=== PATIENT | male | born 1985 | race Two or more races ===

== ENCOUNTER 2020-08-26 15:20 | Outpatient (REF) | payer OTHER, SELFPAY ==
--- NOTE | 2020-08-26 15:28 | XR_ITS ---
EXAMINATION: XR SHOULDER, LEFT CLINICAL INFORMATION: Pain COMPARISON: None TECHNIQUE: AP external rotation, Grashey, scapular Y, and axillary views of the left shoulder. FINDINGS: Bone alignment is normal. No fracture or dislocation is seen. The joint spaces are normal. There is a small soft tissue calcification adjacent to the greater tuberosity. IMPRESSION: No fracture or dislocation seen. Small soft tissue calcification adjacent to the greater tuberosity questionable for calcific tendinitis or bursitis.
== END 2020-08-26 15:21 | disposition home or self-care (01) ==
LOC: HO.XRAY 15:20
PROVIDERS: PCP Internal Medicine Geriatric Medicine; Visit Provider Internal Medicine Geriatric Medicine
DX: M25.512 Pain in left shoulder (principal)
CPT/HCPCS: 73030

== ENCOUNTER → 2020-08-29 12:34 | Outpatient (BNVA) | payer OTHER, SELFPAY | PROVIDERS: PCP Internal Medicine Geriatric Medicine; Referring Provider Internal Medicine Geriatric Medicine; Visit Provider Orthopaedic Surgery | DX: M75.32 Calcific tendinitis of left shoulder (principal) | CPT/HCPCS: 20610; 99212; J1100 ==

== ENCOUNTER → 2020-09-02 13:36 | Outpatient (REF) | payer OTHER, SELFPAY | LOC: HO.SL 13:36 | PROVIDERS: PCP Internal Medicine Geriatric Medicine; Visit Provider Internal Medicine Geriatric Medicine | DX: R06.83 Snoring (principal); R40.0 Somnolence; E66.01 Morbid (severe) obesity due to excess calories | CPT/HCPCS: 95806 ==

== ENCOUNTER 2023-04-28 11:00 | Outpatient (REF) | payer SELFPAY ==
--- NOTE | ~2023-04-28 | XR_ITS ---
EXAMINATION: XR LUMBOSACRAL SPINE CLINICAL INFORMATION: Pain COMPARISON: CT of the abdomen and pelvis March 2020 TECHNIQUE: Three views of the lumbosacral spine. FINDINGS: There is transitional anatomy. Levels are designated with the rudimentary disc at L5-S1 and last rib bearing vertebral body designated as T12. No fracture or dislocation. There is mild anterior subluxation of L4 with respect L5. There is a L4 pars defect. Normal disc spaces. There is lower lumbar spine facet arthritis. Small or absent right L1 transverse process. XR/XR lumbar spine 2-3V IMPRESSION: Transitional anatomy. Mild anterior subluxation of L4 with respect L5 and probable L4 pars defect. Small or absent right L1 transverse process.
--- NOTE | ~2023-04-28 | XR_ITS ---
EXAMINATION: XR KNEE, RIGHT CLINICAL INFORMATION: Tumor of right knee removed. Pain. COMPARISON: Previous x-ray and MRI of the right knee from 2019 TECHNIQUE: Four views of the right knee. FINDINGS: There is cement seen in the proximal lateral tibia unchanged from previous x-ray from 2019. Bone alignment is normal. No fracture or dislocation. Degenerative changes at the lateral femoral tibial and patellofemoral joints. No joint effusion. XR/XR knee RT 4V IMPRESSION: Stable appearance to postsurgical cement in the proximal lateral tibia. Mild degenerative changes.
== END 2023-04-28 11:01 | disposition home or self-care (01) ==
LOC: HO.HHCX 11:00
PROVIDERS: Visit Provider Internal Medicine Geriatric Medicine
DX: M54.50 Low back pain, unspecified (principal); M79.604 Pain in right leg; M25.561 Pain in right knee; M25.461 Effusion, right knee; D48.0 Neoplasm of uncertain behavior of bone and articular cartilage
CPT/HCPCS: 72100; 73564

== ENCOUNTER 2023-06-17 14:17 | Outpatient (AMB) | payer OTHER, SELFPAY ==
--- NOTE | 2023-06-17 14:28 | A.OFFVIS_ITS ---
Intake Intake Visit Reasons: New Prob- Right knee pain and swelling Intake Note: Ernesto is a 38 year old male who presnets today with new complaints of right knee pain and swelling. Patient report that in 2014 he fell on black ice. He was [place] [facility] [place] found a tumor on the tibia. He reports that he had this tumor removed in [place]. He reports that he has contined pain in the right knee, he feels this pain on the medial and lateral aspects. His pain increased pain when climbing stairs. He takes tylenol and ibuprofen for his pain, which helps mildly. 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 He has a history of cortisone injection which gave him releif for a few months. Allergies No Known Allergies Allergy (Verified 06/17/23 14:32) HPI New Prob- Right knee pain and swelling HPI Details Ernesto is a 38 year old man who presents with complaints of right knee pain. 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 He complains of pain and swelling in his knee, worse with activity. He finds climbing stairs especially difficult. He localizes his pain to the medial & lateral aspects of his knee. 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 He finds mild relief from Tylenol or celebrex, and has a hx of several months relief from steroid injections in the past [facility] Medical History (Updated 06/17/23 @ 15:01 by French Linder) Calcific tendonitis of left shoulder Surgical History (Updated 06/17/23 @ 15:01 by French Linder) H/O right knee surgery (~2014) Hx of cholecystectomy (~2014) Family History Mother No problems noted. Father No problems noted. 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 Review of Systems Const All systems reviewed & are unremarkable except as noted in HPI and below Physical Exam Const General: no acute distress, alert and awake Orientation/consciousness: patient oriented x3 HEENT Head: Yes normocephalic and Yes atraumatic Eyes EOM: EOMs intact bilaterally Resp Effort & Inspection: normal respiratory effort and able to speak in complete sentences Cardio Jugular venous distension: no JVD Skin General skin exam: turgor normal Rashes: no rashes Neuro General: patient oriented x3 Extrem Other: Right Knee: Valgus alignment with +1+ valgus laxity TTP lateral compartment Mild effusion Psych Appearance: grossly normal Affect: normal affect Attitude: cooperative Office Procedures Joint Injection/Drain Joint Injection/Drain Details: Injected 1 mL of Decadron and 3 mL 1% lidocaine and 3 mL of 0.25% Marcaine. Site was prepped using aseptic technique. Patient tolerated the procedure well. Primary Site: left knee Approach Used: anterolateral Coding 45208 - Large joint Procedure code (CPT) selection complete Results Reviewed Results Reviewed: 06/17/23 15:07 BUPivacaine MPF 0.25 % [Sensorcaine-MPF 0.25% 10 ML] 10 ml .ROUTE .STK-MED ONE Lidocaine HCl 2 % MPF [Xylocaine 2 % MPF] 5 ml .ROUTE .STK-MED ONE dexAMETHasone sod phosphate [Decadron] 4 mg .ROUTE .STK-MED ONE I personally reviewed relevant radiographs. Stable appearance to postsurgical cement in the proximal lateral tibia. Mild degenerative changes. Assessment & Plan Assessment & Plan (1) Osteoarthritis of right knee: Code(s): M17.11 - Unilateral primary osteoarthritis, right knee Plan: This is a 38 year old man with lateral compartment right knee OA, Hx of Tibial tumor removal & cementation, DOS: 2014. He complains of pain and swelling with daily activity, worse with climbing stairs. He has a hx of relief from steroid injections and mild relief from NSAIDs. I discussed his diagnosis and treatment options. I recommend NSAIDs and bracing. I injected his right knee today, which he tolerated well, and he was fitted for a lateral unloading brace to wear with daily activity. He can follow up prn. (2) H/O right knee surgery: Onset Date: ~2014 Comment: Tibial Tumor removal and Cement reconstruction of bone. Code(s): Z98.890 - Other specified postprocedural states Plan Scribed for Gomez Reed MD by French Linder medical massage therapist, on 06/17/23 at 3:10, EST. Coding Level of Care Code Est Pt Level 4 (31178) Diagnoses Osteoarthritis of right knee M17.11 H/O right knee surgery Z98.890 CPT Codes Coding - 47054 Large joint: 61340 - Large joint ([id number])
== END 2023-06-17 15:28 | disposition home or self-care (01) ==
PROVIDERS: PCP Internal Medicine Geriatric Medicine; Visit Provider Orthopaedic Surgery
DX: M17.11 Unilateral primary osteoarthritis, right knee (principal)
CPT/HCPCS: 20610; 99214

== ENCOUNTER → 2023-06-17 14:17 | Outpatient (BNVA) | payer OTHER, SELFPAY | PROVIDERS: PCP Internal Medicine Geriatric Medicine; Visit Provider Orthopaedic Surgery | DX: M17.11 Unilateral primary osteoarthritis, right knee (principal) | CPT/HCPCS: 20610; 99212; J1100 ==

== ENCOUNTER 2023-09-20 14:05 | Outpatient (AMB) | payer OTHER, SELFPAY ==
--- NOTE | 2023-09-20 14:36 | A.OFFVIS_ITS ---
Intake Intake Visit Reasons: Right Knee Injection - Last Intake Note: Ernesto is a 38 year old male who presents to for a right knee injection. The last injection done on 06/17/23 was helpful Allergies No Known Allergies Allergy (Verified 06/17/23 14:32) HPI Right Knee Injection - Last HPI Details Ernesto is a 38 year old man who returns to discuss his right knee OA. 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 He was not able to obtain a knee brace (cost prohibitive) and he continues to have pain. [facility] Medical History (Updated 06/17/23 @ 15:01 by French Linder) Calcific tendonitis of left shoulder Surgical History (Updated 06/17/23 @ 15:01 by French Linder) H/O right knee surgery (~2014) Hx of cholecystectomy (~2014) Family History Mother No problems noted. Father No problems noted. 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 Review of Systems Const All systems reviewed & are unremarkable except as noted in HPI and below Physical Exam Const General: no acute distress, alert and awake Orientation/consciousness: patient oriented x3 HEENT Head: Yes normocephalic and Yes atraumatic Eyes EOM: EOMs intact bilaterally Resp Effort & Inspection: normal respiratory effort and able to speak in complete sentences Cardio Jugular venous distension: no JVD Skin General skin exam: turgor normal Rashes: no rashes Neuro General: patient oriented x3 Extrem Other: Right Knee: Valgus alignment with 1+ valgus laxity TTP lateral compartment Mild effusion Skin C/D/I Psych Appearance: grossly normal Affect: normal affect Attitude: cooperative Office Procedures Joint Injection/Drain Joint Injection/Drain Details: Injected 1 mL of Decadron and 3 mL 1% lidocaine and 3 mL of 0.25% Marcaine. Site was prepped using aseptic technique. Patient tolerated the procedure well. Primary Site: right knee Approach Used: anterolateral Coding 43080 - Large joint Procedure code (CPT) selection complete Results Reviewed Results Reviewed: 09/20/23 14:02 BUPivacaine MPF 0.25 % [Sensorcaine-MPF 0.25% 10 ML] 10 ml .ROUTE .STK-MED ONE Lidocaine HCl 2 % MPF [Xylocaine 2 % MPF] 5 ml .ROUTE .STK-MED ONE dexAMETHasone sod phosphate [Decadron] 4 mg .ROUTE .STK-MED ONE I personally reviewed relevant radiographs. Stable appearance to postsurgical cement in the proximal lateral tibia. Mild degenerative changes. Assessment & Plan Assessment & Plan (1) Osteoarthritis of right knee: Code(s): M17.11 - Unilateral primary osteoarthritis, right knee Plan: This is a 38 year old man with lateral compartment right knee OA, Hx of Tibial tumor removal & cementation, DOS: 2014. I injected his knee again today. I showed him some unloading versus on [employer] that may be more reasonable from a cost perspective. I recommend he get those. He will see to contact me if his any questions and he can return to see me for repeat injections but try to wait as long as possible. (2) H/O right knee surgery: Onset Date: ~2014 Comment: Tibial Tumor removal and Cement reconstruction of bone. Code(s): Z98.890 - Other specified postprocedural states Coding Level of Care Code Est Pt Level 4 (85362) Diagnoses Osteoarthritis of right knee M17.11 H/O right knee surgery Z98.890 CPT Codes Coding - Large joint: 57922 - Large joint ([id number])
== END 2023-09-20 15:14 | disposition home or self-care (01) ==
PROVIDERS: PCP Internal Medicine Geriatric Medicine; Visit Provider Orthopaedic Surgery
DX: M17.11 Unilateral primary osteoarthritis, right knee (principal)
CPT/HCPCS: 20610; 99213

== ENCOUNTER → 2023-09-20 14:05 | Outpatient (BNVA) | payer OTHER, SELFPAY | PROVIDERS: PCP Internal Medicine Geriatric Medicine; Visit Provider Orthopaedic Surgery | DX: M17.11 Unilateral primary osteoarthritis, right knee (principal); Z85.830 Personal history of malignant neoplasm of bone | CPT/HCPCS: 20610; J0665; J1100 ==

== ENCOUNTER 2024-01-03 14:47 | Outpatient (AMB) | payer OTHER, SELFPAY ==
--- NOTE | 2024-01-03 14:49 | MHC.OFFVIS ---
Intake Intake Visit Reasons: OV- Right Knee Injection Intake Note: Ernesto is a 38 year old male who presents to the office today for a right knee injection. Pt states his knee is not as painful but states he still gets discomfort especially when he is bending his knee. Pt states he would like another injection. His last knee injection was 09/20/23. Allergies No Known Allergies Allergy (Verified 01/03/24 14:49) HPI OV- Right Knee Injection HPI Details Ernesto is a 38 year old man who returns to discuss his right knee OA. he was last seen, and injected, on 09/20/23, with good relief. He complains primarily of pain when bending his knee, with more discomfort with other activities. [facility] Medical History Calcific tendonitis of left shoulder Surgical History H/O right knee surgery (~2014) Hx of cholecystectomy (~2014) Family History Mother No problems noted. Father No problems noted. 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 Review of Systems Const All systems reviewed & are unremarkable except as noted in HPI and below Physical Exam Const General: no acute distress, alert and awake Orientation/consciousness: patient oriented x3 HEENT Head: Yes normocephalic and Yes atraumatic Eyes EOM: EOMs intact bilaterally Resp Effort & Inspection: normal respiratory effort and able to speak in complete sentences Cardio Jugular venous distension: no JVD Skin General skin exam: turgor normal Rashes: no rashes Neuro General: patient oriented x3 Extrem Other: mild ttp medial joint line right knee mild varus alignment with 1+ varus laxity Psych Appearance: grossly normal Affect: normal affect Attitude: cooperative Assessment & Plan Assessment & Plan (1) Osteoarthritis of right knee: Code(s): M17.11 - Unilateral primary osteoarthritis, right knee Plan: I had recommended a medial unloading right knee brace but the brace offered him was far too expensive. I showed him what braces to order on [employer] and he will see me if he has any questions. He does not need any additional treatment at this time. Plan Prepared for Gomez Reed MD by French Linder, certified medical coder, on 01/03/24 at 2:56 PM, EST. Coding Level of Care Code Est Pt Level 3 (28718) Diagnoses Osteoarthritis of right knee M17.11
== END 2024-01-03 15:15 | disposition home or self-care (01) ==
PROVIDERS: PCP Internal Medicine Geriatric Medicine; Visit Provider Orthopaedic Surgery
DX: M17.11 Unilateral primary osteoarthritis, right knee (principal)
CPT/HCPCS: 99212

== ENCOUNTER → 2024-01-03 14:47 | Outpatient (BNVA) | payer OTHER, SELFPAY | PROVIDERS: PCP Internal Medicine Geriatric Medicine; Visit Provider Orthopaedic Surgery | DX: M17.11 Unilateral primary osteoarthritis, right knee (principal) | CPT/HCPCS: J0665; J1100 ==

== ENCOUNTER 2024-03-15 10:14 | Outpatient (REF) | payer OTHER, SELFPAY ==
[2024-03-15 11:32] LABS: MANUAL DIFF FLAG NO
[2024-03-15 11:37] LABS: Basophils Absolute Auto 0.1 X10*3/uL (0.0-0.2); Basophils Percent Auto 0.7 % (0-2); Eosinophils Absolute Auto 0.1 X10*3/uL (0.0-0.4); Eosinophils Percent Auto 1.6 % (0-4); Hematocrit 44.7 % (42.0-52.0); Hemoglobin 13.8 g/dl (14.0-18.0); Imm Gran Abs Auto 0.08 X10*3/uL (0.00-0.03); Imm Gran Pct Auto 1.2 % (0.0-0.4); Lymphocytes Absolute Auto 1.8 X10*3/uL (1.2-4.9); Lymphocytes Percent Auto 27.3 % (20-40); Mean Corpuscular HGB Conc 30.9 g/dl (31.0-36.0); Mean Corpuscular Hemoglobin 29.5 pg (27.0-33.0); Mean Corpuscular Volume 95.5 fL (80.0-98.0); Mean Platelet Volume 11.9 fL (9.4-12.4); Monocytes Absolute Auto 0.6 X10*3/uL (0.1-1.2); Monocytes Percent Auto 9.4 % (2-11); Neutrophils Percent Auto 59.8 % (45-73); Platelet Count 263 X10*3/uL (160-400); Red Blood Count 4.68 X10*6/uL (4.60-5.80); White Blood Count 6.7 X10*3/uL (4.8-10.8)
[2024-03-15 12:05] LABS: Anion Gap 13 (12-20); Blood Urea Nitrogen 19 mg/dL (9-16); Carbon Dioxide 26 mmol/L (22-29); Chloride 107 mmol/L (96-108); Estimated Glomerular Filt Rate > 60; Glucose Random 99 mg/dL (60-115); Potassium 4.3 mmol/L (3.3-5.1); Sodium 142 mmol/L (135-145)
== END 2024-03-15 10:15 | disposition home or self-care (01) ==
LOC: HO.HHCL 10:14
PROVIDERS: Visit Provider Internal Medicine Geriatric Medicine
DX: M25.561 Pain in right knee (principal); G89.29 Other chronic pain
CPT/HCPCS: 36415; 80048; 85025

== ENCOUNTER 2024-04-10 14:50 | Outpatient (AMB) | payer OTHER, SELFPAY ==
--- NOTE | 2024-04-10 14:58 | A.OFFVIS_ITS ---
Intake Visit Reasons: OV- Right Knee-follow up Intake Note: Ernesto is a 38 year old male who presents today for a follow up of his right knee OA. It was recommended that he obtain a Medial unloading brace but the custom one from [employer] was too expensive. He was instructed to try an obtain one from [employer] that was more affordable. Allergies No Known Allergies Allergy (Verified 01/26/24 13:06) HPI HPI OV- Right Knee-follow up: Details: Ernesto is a 38 year old male who presents today for a follow up of his right knee OA. It was recommended that he obtain a Medial unloading brace but the custom one from [employer] was too expensive. He was instructed to try an obtain one from [employer] that was more affordable. [facility] Medical History Calcific tendonitis of left shoulder Surgical History H/O right knee surgery (~2014) Hx of cholecystectomy (~2014) Family History Mother No problems noted. Father No problems noted. 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 I recommend 2-4 hours a day. F/u 4 weeks Coding Level of Care Code Est Pt Level 3 (64051) Diagnoses Osteoarthritis of right knee M17.11
== END 2024-04-10 16:03 | disposition home or self-care (01) ==
PROVIDERS: PCP Internal Medicine Geriatric Medicine; Visit Provider Orthopaedic Surgery
DX: M17.11 Unilateral primary osteoarthritis, right knee (principal)
CPT/HCPCS: 99213

== ENCOUNTER → 2024-04-10 14:50 | Outpatient (BNVA) | payer OTHER, SELFPAY | PROVIDERS: PCP Internal Medicine Geriatric Medicine; Visit Provider Orthopaedic Surgery ==

== ENCOUNTER 2024-05-15 14:54 | Outpatient (AMB) | payer OTHER, SELFPAY ==
--- NOTE | 2024-05-15 15:02 | MHC.OFFVIS ---
Intake Visit Reasons: OV- Right Knee-follow up Intake Note: Ernesto is a 39 year old male who presents today for a follow up of his right knee pain. He ordered a Medial unloading brace from [employer] which he has been wearing since his last visit Allergies No Known Allergies Allergy (Verified 01/26/24 13:06) HPI HPI OV- Right Knee-follow up: Details: Ernesto is a 39 year old male who presents today for a follow up of his right knee pain. He ordered a Medial unloading brace from [employer] which he has been wearing since his last visit. He states he feels more stable and is going to start trying to exercise. [facility] Medical History Calcific tendonitis of left shoulder Surgical History H/O right knee surgery (~2014) Hx of cholecystectomy (~2014) Family History Mother No problems noted. Father No problems noted. 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 COntinue to use unloading brace as tolerated. May follow up as needed. Coding Level of Care Code Est Pt Level 3 (23938) Diagnoses Osteoarthritis of right knee M17.11
== END 2024-05-15 15:07 | disposition home or self-care (01) ==
PROVIDERS: PCP Internal Medicine Geriatric Medicine; Visit Provider Orthopaedic Surgery
DX: M17.11 Unilateral primary osteoarthritis, right knee (principal)
CPT/HCPCS: 99212

== ENCOUNTER → 2024-05-15 14:54 | Outpatient (BNVA) | payer OTHER, SELFPAY | PROVIDERS: PCP Internal Medicine Geriatric Medicine; Visit Provider Orthopaedic Surgery ==

== ENCOUNTER 2025-05-02 16:12 | Outpatient (REF) | payer OTHER, SELFPAY ==
--- OUTSIDE RECORDS SUMMARY | 2025-05-02 18:44 | XMS_ITS | Encounter Summary ---
Author Organization [employer] Address [address] [place] [address] Care Team Providers Care Metal Stud Framer Name Role Phone Name, Jermain GALINDO Primary Care Provider [phone] Encounter Details Date Type Department Care Team (Latest Contact Info) Description 05/02/2025 Travel Social History Tobacco Use Types Packs/Day Years Used Date Smoking Tobacco: Former Cigarettes Q uit: 1997 Smokeless Tobacco: Never Alcohol Use Standard Drinks/Week Comments Not Currently 0 (1 standard drink = 0.6 oz pur e alcohol) Depression Answer Date Recorded Patient Health Questionnaire-9 Score 4 08/22/2024 Patient Health Questionnaire-9 Score 4 08/22/2024 Last PHQ-9: Questionnaire Data Not on file 1 Housing Stability Answer Date Recorded What is your housing situation today? I have cory chavez 05/02/[address] you li ve. Do you have problems with any of the following? None of the above 05/02/2025 Food Insecurity Answer Date Recorded Within the past 12 months, y ou worried that your food would run out before you got money to buy more: Sometimes True 2024 Within the past 12 months,th e food you bought just didn't last and you didn't have enough money to get more: Never True 05/02/2025 Transportation Answer Date Recorded In the past 12 months, has l ack of transportation kept you from medical appts, meetings, work or from getting things needed for daily living? No 05/02/2025 Utilities Answer Date Recorded In the past 12 months, has t he electric, gas, oil or water company threatened to shut off services in your home? No 05/02/2025 Depression Answer Date Recorded Patient Health Questionnaire-2 Score 1 08/22/2024 Internet Access Answer Date Recorded Internet Access Q1 Yes 05/02/2025 Internet Access Q2 Not on file 05/02/2025 Sex and Gender Information Value Date Recorded Sex Assigned at Male 09/07/2022 10:35 AM EDT Legal Sex Male 10:35 AM EDT Gender Identity Male 09/07/2022 10:35 AM EDT Sexual Orientation Straight 09/07/2022 10 :35 AM EDT documented as of this encounter Plan of Treatment Not on file documented as of this encounter Visit Diagnoses Not on filedocumented in this encounter Additional Health Concerns Assessment Noted Time PHQ-9 Depression Total Score: 4 08/22/20 24 9:12 AM EDT documented as of this encounter Care Teams Metal Stud Framer Relationship Specialty Start Date End Date Name, MD Jermain [address] [place] [address] PCP - General Family Medicine 12/08/18 documented as of this encounter
== END 2025-05-02 16:13 | disposition home or self-care (01) ==
LOC: HO.HHCL 16:12
PROVIDERS: PCP Internal Medicine Geriatric Medicine; Visit Provider Internal Medicine Geriatric Medicine
DX: Z13.89 Encounter for screening for other disorder (principal)

== ENCOUNTER 2025-05-03 12:24 | Outpatient (REF) | payer OTHER, SELFPAY ==
--- NOTE | ~2025-05-03 | XR_ITS ---
CLINICAL HISTORY: Chronic biltaral knee pain, history of tumor right knee s p surgery 2014 AP standing view of the bilateral knees Lateral view left knee Lateral view right knee Comparison: None provided Findings: Chronic deformity of the right lateral tibial plateau. Cement has been placed in the region of deformity. 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 There is no acute displaced fracture. There is a mild leg length discrepancy. The left medial tibial plateau is 1.3 cm superior to the right. There is mild narrowing of the right medial knee compartment. No significant narrowing of the left medial or bilateral lateral knee compartments. No joint effusion. No radiopaque foreign body. IMPRESSION: 1. Surgical cement within the right lateral tibial plateau. Chronic deformity of the right lateral tibial plateau. 2. There is a mild leg length discrepancy. 3. There is mild cartilage loss within the right medial knee compartment. This document has been electronically signed by: Stephania Morgan MD on 05/04/2025 16:15:09
--- NOTE | ~2025-05-03 | XR_ITS ---
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 No acute fractures or dislocation. No significant degenerative change. IMPRESSION: No acute findings. This document has been electronically signed by: Eleazar Alcala MD on 05/03/2025 22:59:47
--- NOTE | ~2025-05-03 | XR_ITS ---
CLINICAL HISTORY: Pain and decreased ROM for the past month after heavy lifing 4 view left shoulder Comparison: None provided Findings: Bones intact. No dislocations. 1.4 cm calcification superior to the head of the humerus. No significant loss of joint space or osteophytes. No erosions. No radiopaque foreign body. IMPRESSION: Calcific tendinitis of the rotator cuff. This document has been electronically signed by: Stephania Morgan MD on 05/04/2025 16:12:22
[2025-05-03 13:19] LABS: MANUAL DIFF FLAG NO
[2025-05-03 14:23] LABS: Basophils Percent Auto 0.6 % (0-2); Eosinophils Absolute Auto 0.1 X10*3/uL (0.0-0.4); Eosinophils Percent Auto 1.8 % (0-4); Hematocrit 41.3 % (42.0-52.0); Hemoglobin 12.9 g/dl (14.0-18.0); Imm Gran Abs Auto 0.03 X10*3/uL (0.00-0.03); Imm Gran Pct Auto 0.4 % (0.0-0.4); Lymphocytes Absolute Auto 1.8 X10*3/uL (1.2-4.9); Lymphocytes Percent Auto 27.5 % (20-40); Mean Corpuscular HGB Conc 31.2 g/dl (31.0-36.0); Mean Corpuscular Hemoglobin 28.9 pg (27.0-33.0); Mean Corpuscular Volume 92.6 fL (80.0-98.0); Mean Platelet Volume 11.4 fL (9.4-12.4); Monocytes Absolute Auto 0.6 X10*3/uL (0.1-1.2); Monocytes Percent Auto 9.6 % (2-11); Neutrophils Percent Auto 60.1 % (45-73); Platelet Count 279 X10*3/uL (160-400); Red Blood Count 4.46 X10*6/uL (4.60-5.80); Red Cell Distribution Width 11.9 % (11.0-16.0); White Blood Count 6.7 X10*3/uL (4.8-10.8)
[2025-05-03 14:32] LABS: Estimated Average Glucose 94 mg/dL; Hemoglobin A1C 103.3312 umol/L; Hemoglobin A1c % 4.9 % (<6.0)
--- OUTSIDE RECORDS SUMMARY | 2025-05-03 14:44 | XMS_ITS | Encounter Summary ---
Author Organization [employer] Address [address] [place] [address] Care Team Providers Care Balloon Pilot Name Role Phone Name, Jermain GALINDO Primary Care Provider [phone] Encounter Details Date Type Department Care Team [...] documented as of this encounter Care Teams Balloon Pilot Relationship Specialty Start Date End Date Name, MD [address]erm[address] [place] [address] PCP - General Family Medicine 12/08/18 documented as of this encounter
[2025-05-03 14:53] LABS: Alanine Aminotransferase 25 U/L (0-40); Albumin Level 4.7 g/dL (3.5-5.0); Alkaline Phosphatase 70 U/L (39-117); Anion Gap 10 (12-20); Aspartate Amino Transferase 19 U/L (5-37); Bilirubin Total 0.4 mg/dL (0.0-1.0); Blood Urea Nitrogen 17 mg/dL (9-16); Calcium 9.3 mg/dL (8.4-10.2); Carbon Dioxide 27 mmol/L (22-29); Chloride 110 mmol/L (96-108); Estimated Glomerular Filt Rate > 60; Glucose Random 79 mg/dL (60-115); Potassium 4.1 mmol/L (3.3-5.1); Sodium 143 mmol/L (135-145); Total Protein 7.3 g/dL (6.5-8.0)
== END 2025-05-03 12:25 | disposition home or self-care (01) ==
LOC: HO.XRAY 12:24
PROVIDERS: PCP Internal Medicine Geriatric Medicine; Visit Provider Internal Medicine Geriatric Medicine
DX: M25.512 Pain in left shoulder (principal); M25.561 Pain in right knee; M25.562 Pain in left knee; G89.29 Other chronic pain; M54.50 Low back pain, unspecified; E66.01 Morbid (severe) obesity due to excess calories; Z51.81 Encounter for therapeutic drug level monitoring; Z79.1 Long term (current) use of non-steroidal anti-inflammatories (NSAID); Z13.1 Encounter for screening for diabetes mellitus
CPT/HCPCS: 36415; 72100; 73030; 73560; 80053; 83036; 85025

== ENCOUNTER → 2025-05-03 12:29 | Outpatient (BNV) | payer OTHER, SELFPAY | PROVIDERS: PCP Internal Medicine Geriatric Medicine; Visit Provider Specialist | DX: M54.50 Low back pain, unspecified (principal); M75.32 Calcific tendinitis of left shoulder; M21.861 Other specified acquired deformities of right lower leg | CPT/HCPCS: 72100; 73030; 73560 ==

== ENCOUNTER 2025-07-11 12:42 | Outpatient (AMB) | payer OTHER, SELFPAY ==
--- NOTE | 2025-07-11 12:46 | A.OFFVIS_ITS ---
Intake Visit Reasons: vasectomy consult Intake Note: New Patient is present for Vasectomy consult Urology Rx:none Blood Thinners:none Property Officer Required: No Accompanied by: Self / Same As Patient Allergies No Known Allergies Allergy (Verified 07/11/25 12:47) HPI Comments Details: Ernesto is a very pleasant male. He is a patient of Dr Nair. He is seen for the following urologic condition - anxiety about health - Vasectomy evaluation Georgian translation provided in office by qualified medical genetics director Vasectomy evaluation The patient presents for vasectomy consultation. He is currently He has fathered - 3 child, with a single partner. The youngest child is - in uretero. His partner is aware and permissive for a vasectomy Current form of control is -. 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 Patient education has been provided via [employer] video, via printed information, risks of failure, recovery time, bruising and potential pain syndrome have been stressed Discussion today focused on the presence of vasectomy and the risks, benefits and alternatives that are available. Vasectomy as intended as a permanent form of control. Printed information and literature was provided to the patient. Overall there is a one in 2500 failure rate. This can occur at any time after vasectomy. Risks were discussed highlighting hematoma, spermatocele, epididymal congestion, development of sperm antibodies, and development of chronic pain estimated between 1-5%. The procedure was reviewed in detail. Anatomical diagrams of the male genitalia were used to explain the location of the vas deferens. The vas deferens will be transected, the proximal end will be cauterized, a metal clip would be applied to separate the 2 vas deferens ends. It was explained the procedure will be done in the office and takes approximately 10-15 minutes. Less common problems that arise with vasectomy include hematoma, bleeding, allergic reaction to anesthetic, epididymal infection, epididymal congestion, scrotal discomfort, spermatic leak, spermatic granuloma and the possibility of antisperm antibodies. He understands these risks and wishes to proceed. Consent was signed at the office today. He also understands that it takes 12 weeks for sperm to fully clear the system. He will need to provide a semen sample at 12 weeks and if this is not clear a 2nd sample at 16 weeks. Medical clearance to stop using protection will only be provided if he satisfies published criteria for sperm clearance. Given is currently recommend vasectomy in November [facility] Medical History Calcific tendonitis of left shoulder Surgical History H/O right knee surgery (~2014) Hx of cholecystectomy (~2014) Family History Mother No problems noted. Father No problems noted. 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 Review of Systems Const Denies chills and Denies fever(s) Card Reports no additional complaints and Denies syncope Resp Denies cough GI Denies abdominal pain and Denies heartburn Reports as per HPI and Denies change in libido Neuro Denies syncope Psych Denies change in libido Endo Denies change in libido Physical Exam Const General: cooperative, healthy appearing, comfortable and no acute distress Orientation/consciousness: patient oriented x3 HEENT Face and sinus: Yes normal facial exam Mouth: moist mucous membranes Neck Neck: Yes normal visual inspection, Yes full ROM and Yes trachea midline Chest Chest palpation & inspection: normal inspection of the chest Resp Effort & Inspection: normal respiratory effort, able to speak in complete sentences and no respiratory distress GI Inspection: Yes normal to inspection Back/Spine/Pelvis Cervical Spine: normal cervical lordosis Thoracic/Lumbar Spine: thoracic and lumbar spine normal to inspection Skin General skin exam: no rashes or lesions noted Neuro General: patient oriented x3, gait normal, tone normal and moves all extremities Extrem General: Yes normal to inspection and Yes capillary refill normal Assessment & Plan Assessment & Plan (1) Anxiety about health: Code(s): R45.89 - Other symptoms and signs involving emotional state Category: Medical Plan Plan vasectomy Medications: New diazepam Take medication after arrival at office 2 mg PO BID PRN 2 tabs 0RF anxiety 1 day R45.89 - Other symptoms and signs involving emotional state tramadol 50 mg PO Q8H PRN 7 tabs 0RF pain N43.3 - Hydrocele, unspecified, R45.89 - Other symptoms and signs involving emotional state Patient Instructions: This note is constructed using voice recognition software. While every effort has been made to ensure accuracy senior trial attorney errors may have been included. Imaging studies, laboratory and physical exam results were discussed and reviewed in detail. No major barriers to patient understanding were identified. An opportunity to ask questions regarding the treatment plan was provided. All questions were answered. The patient expressed understanding and agreement with the above treatment plan. The patient is aware they should contact our office by phone for worsening of their current condition or the appearance of new urologic symptoms. Compliance is encouraged with any medications and followup testing that is ordered. It is a privilege to participate in the urologic care of your patient. If you have any questions or concerns regarding treatment for the above conditions, or other urologic issues, please do not hesitate to contact me. The office telephone contact is [phone]. Sincerely, Dr Ja Hope MD, [facility] - Urology Compassionate Specialist Care for the Genitourinary System Coding Level of Care Code New Pt Level 4 (12362) Diagnoses Anxiety about health R45.89
--- OUTSIDE RECORDS SUMMARY | 2025-07-11 15:05 | XMS_ITS | Clinical Summary ---
Author Organization [employer] Address [address] [place] [address] Care Team Providers Care Bore Miner Operator Name Role Phone Name, Jermain GALINDO Primary Care Provider [phone] Allergies No known active allergies Medications acetaminophen (Tylenol) 500 MG tablet Take 2 tablets (1,000 mg) by mouth every 6 (six) hours if needed for moderate pain or fever for up to 25 doses. 50 tablet 11/09/19 24 Active Additional Information Patient not taking.Reported on 05/30/2024 ipratropium (Atrovent) 0.06 % nasal spray USE 2 SPRAYS IN EACH NOSTRIL FOUR TIMES DAILY 15 mL 1 06/28/20 24 Active celecoxib (CeleBREX) 200 MG capsuleIndicat ions:Bilateral chronic knee pain Take 1 capsule (200 mg) by mouth 2 times daily. 180 capsule 2 05/02/20 25 Active Diclofenac Sodium 1 % gelIndications :Bilateral chronic knee pain APPLY 2 GRAMS TO affected HAND ONCE DAILY 100 g 3 05/02/20 25 Active omeprazole OTC (PriLOSEC OTC) 20 MG EC tabletIndicati ons:Bilateral chronic knee pain Take 1 tablet (20 mg) by mouth before breakfast. Do not crush, chew, or split. 90 tablet 3 05/02/20 25 026 Active Tirzepatide-We ight Management (Zepbound) 2.5 MG/0.5ML solution auto-injector Inject 0.5 mL (2.5 mg) under the skin 1 (one) time per week. 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 He was then referred to orthopedic oncologist that removed the tumor that was consistent with giant cell tumor Resolved Problems Problem Noted Date Diagnosed Date Resolved Date Influenza-like symptoms 04/19/202304/08 Ankle swelling 12/24/2015 01/25/2024 Bone pain 12/24/2015 01/25/2024 Disorder of lower leg 12/24/20152022 Overview (04/19/2023): RIGHT; Routine general medical exam ination at a health care facility 12/24/2015 04/19/2023 Encounters Date Type Department Care Team Description 06/22/2025 Telephone [facility] [address] [place] [phone] Name, MD Jermain Referral 06/19/2025 Telephone [facility] [address] [place] [address] NameJermain MD Prior Authorization 06/19/[address] [address] NameJermain MD Results 05/02/2025 3:45 PM EDT Office Visit [facility] [address] [place] [address] Name, MD Jermain Morbid obesity (CMS/HCC) (Primary Dx); Obstructive sleep apnea syndrome; Acute bilateral low back pain without sciatica; Bilateral chronic knee pain; Giant cell tumor of bone; Acute pain of left shoulder; Encounter for monitoring chronic NSAID therapy; Family planning 05/02/2025 Travel 05/01/2025 Telephone [facility] [address] [place] [address] Annalisa Manriquez [place] CHARTPREP from Last 3 Months Immunizations Immunization Administration Dates Next Due Influenza injectable quadriv alent preservative free 09/22/2023,11/11/2021,07/31/2019,2018,12/21/2016 Influenza, seasonal, injecta ble, preservative free 08/22/2024 Tdap 12/08/2018,12/21/2016 Social History Tobacco Use Types Packs/Day Years Used Date Smoking Tobacco: Former Cigarettes Q uit: 1997 Smokeless Tobacco: Never Tobacco Cessation:Counseling Given: Not Answered Alcohol Use Standard Drinks/Week Comments Not Currently 0 (1 standard drink = 0.6 oz pur e alcohol) Depression Answer Date Recorded Patient Health Questionnaire-9 Score 4 08/22/2024 Patient Health Questionnaire-9 Score 4 08/22/2024 Last PHQ-9: Questionnaire Data Not on file 1 Housing Stability Answer Date Recorded What is your housing situation today? I have coryerick chavez 05/02/[address] you [...] the past 12 months, has t he [employer], oil or water company threatened to shut [...] Orientation Straight 09/07/2022 10 :35 AM EDT Last Filed Vital Signs Vital Sign Reading Time Taken Comments Blood Pressure 120/72 05/02/2025 3:37 PM EDT Pulse 93 05/02/2025 3:37 PM EDT Temperature 36.5 C (97.7 F) 05/02/2025 3:37 PM EDT Respiratory Rate 18 05/02/2025 3:37 PM EDT Oxygen Saturation 96% 05/02/2025 3:37 PM EDT Inhaled Oxygen Concentration - - Weight 146 kg (321 lb 3.2 oz) 05/02/2025 3:37 PM EDT Height 180.3 cm (5' 11 ) 05/02/2025 3:37 PM EDT Body Mass Index 44.8 05/02/2025 3:37 PM EDT Plan of Treatment Upcoming Encounters Date Type Department Care Team (Late st Contact Info) Description 07/23/2025 9:00 AM EDT Nutrition [facility] DIABETES/NUTRITION [address] [place] [address] [place] [address] 08/02/2025 9:45 AM EDT Procedure Visit [facility] CHC MED & PEDS [address] [place] [address] Keara Zhang MD [address] [place] [address] 08/27/2025 3:30 PM EDT Office Visit [facility] [address] [place] [address] Name, MD Jermain [address] [place] [address] Health Maintenance Due Date Last Done Comments Family Planning (PISQ) 1999 HPV Vaccines (1 - Male 3-dose series) 1999 Hepatitis B Vaccines (1 of 3 - 19+ 3-dose series) 2003 COVID-19 Vaccine (1 - 2023- season) 2025 Influenza Vaccine (#1) 2025 , 09/22/2023, 11/11/2021, Additional history exists Alcohol/Substance Use Screening 08/22/2025 08/22/2024 Depression Screening 08/22/2025 08/22/2024, 08/22/20 24 Disability Screening 05/02/2026 05/02/2025 SDOH Screening 05/02/2026 05/02/2025 Tobacco Screening 05/02/2026 05/02/2025 Lipid Panel 04/28/2028 04/28/2023, 11/10, 08/15/2020 DTaP/Tdap/Td Vaccines (3 - Td or Tdap) 12/08/2028 12/08/2018, 12/21/2016 Zoster Vaccines (1 of 2) 2034 RSV Patients and Patients Aged 60 years or older (1 - 1-dose 75+ series) 2059 HIV Screening Completed 12/08/2021 Hepatitis C Screening Completed 12/08/2021 HIB Vaccines Aged Out No longer eligi ble based on patient's age to complete this topic Hepatitis A Vaccines Aged Out No long er eligible based on patient's age to complete this topic IPV Vaccines Aged Out No longer eligi ble based on patient's age to complete this topic Meningococcal B Vaccine Aged Out No l onger eligible based on patient's age to complete this topic Meningococcal Vaccine Aged Out No evon lakhwinder eligible based on patient's age to complete this topic Pneumococcal Vaccine: Pediatrics (0 to 5 Years) and At-Risk Patients (6 to 49) Years Aged Out No longer eligible based on patient's age to complete this topic RSV under 20 months Aged Out No longe r eligible based on patient's age to complete this topic Rotavirus Vaccines Aged Out No longer eligible based on patient's age to complete this topic Procedures Procedure Name Priority Date/Time Associated Diagnosis Comments XR KNEE 1-2 VIEWS BILATERAL Routine 05/04/2025 4:15 PM EDT Bilateral chronic knee pain XR SHOULDER 2+ VIEWS LEFT Routine 05/04/2025 4:12 PM EDT Acute pain of left shoulder XR LUMBAR SPINE 2-3 VIEWS Routine 05/03/2025 10:59 PM EDT Acute bilateral low back pain without sciatica HEMOGLOBIN A1C Routine 05/03/2025 1:14 PM EDT Morbid obesity (CMS/HCC) COMPREHENSIVE METABOLIC PANEL Routine 05/03/2025 1:14 PM EDT Morbid obesity (CMS/HCC) Encounter for monitoring chronic NSAID therapy CBC WITH AUTO DIFFERENTIAL Routine 05/03/2025 1:14 PM EDT Morbid obesity (CMS/HCC) Encounter for monitoring chronic NSAID therapy LIPID PANEL, STANDARD Routine 04/28/2023 10:00 AM EDT Screening for cholesterol level ZZZ HISTORICAL HEPATITIS C AB W/REFL TO HCV RNA, QN, PCR Routine 12/08/2021 11:25 AM EST HIV 1/2 ANTIGEN/ANTIBODY, FOURTH GENERATION W/RFL Routine 12/08/2021 11:25 AM EST from Last 3 Months or Most Recently Relevant to Health Maintenance Results * XR Knee 1-2 Views Bilateral (05/04/2025 4:15 PM EDT) Anatomical Region Laterality Modality Lower Extremities, Knee Bilateral Radiogra [facility] 05/04/2025 4:15 PM EDT Narrative 05/04/2025 4:16 PM EDT [address] [address] XRay Report Signed Patient: Ernesto Pop MR#: [id number] : 1985 Acct:[id number] Age/Sex: 39 / M ADM Date: 05/03/25 Loc: HOMAXIM Attending Dr: Jermain Nair MD Ordering Physician: NameJermain MD Date of Service: 05/03/25 Procedure(s): XR Knee Osmany 1or 2V Accession Number(s): [id number] cc: Name,Jermain GALINDO CLINICAL HISTORY: Chronic biltaral knee pain, history of tumor right knee s p surgery 2014 AP standing view of the bilateral knees Lateral view left knee Lateral view right knee Comparison: None provided Findings: Chronic deformity of the right lateral tibial plateau. Cement has been placed in the region of deformity. 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 There is no acute displaced fracture. There is a mild leg length discrepancy. The left medial tibial plateau is 1.3 cm superior to the right. There is mild narrowing of the right medial knee compartment. No significant narrowing of the left medial or bilateral lateral knee compartments. No joint effusion. No radiopaque foreign body. IMPRESSION: 1. Surgical cement within the right lateral tibial plateau. Chronic deformity of the right lateral tibial plateau. 2. There is a mild leg length discrepancy. 3. There is mild cartilage loss within the right medial knee compartment. This document has been electronically signed by: Stephania Morgan MD on 05/04/2025 16:15:09 Dictated By: Stephania Morgan MD Signed By: <Electronically signed by Stephania Morgan MD in OV> 05/04/25 1616 DD/ 1615 TD/TT: 05/04/25 1615 Fast Brim Pouncer: Procedure Note Donotuseinterpreter, Image - 05/04/[address] [address] XRay Report Signed Patient: Edgar Pop#: [id number] : 1985Acct:[id number] Age/Sex: 39 / MADM Date: 05/03/25 Loc: HOMAXIM Attending Dr: Jermain Nair MD Ordering Physician: Jermain Nair MD Date of Service: 05/03/25 Procedure(s): XR Knee Osmnay 1or 2V Accession Number(s): [id number] cc: Jermain Nair MD CLINICAL HISTORY: Chronic biltaral knee pain, history of tumor right knees p surgery 2014 AP standing view of the bilateral knees Lateral view left knee Lateral view right knee Comparison: None provided Findings: Chronic deformity of the right lateral tibial plateau. Cement has been placed in the region of deformity. 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 There is no acute displaced fracture. There is a mild leg length discrepancy. The left medial tibial plateau is 1.3 cm superior to the right. There is mild narrowing of the right medial knee compartment. No significant narrowing of the left medial or bilateral lateral knee compartments. No joint effusion. No radiopaque foreign body. IMPRESSION: 1. Surgical cement within the right lateral tibial plateau. Chronic deformity of the right lateral tibial plateau. 2. There is a mild leg length discrepancy. 3. There is mild cartilage loss within the right medial knee compartment. This document has been electronically signed by: Stephania Morgan MD on 05/04/2025 16:15:09 Dictated By: Stephania Morgan MD Signed By: <Electronically signed by Stephania Morgan MD in OV> 05/04/25 1616 DD/ 1615 TD/TT: 05/04/25 1615 Fast Brim Pouncer: Jermain Nair MD IMG XR PROCEDURES Final Result * XR Shoulder 2+ Views Left (05/04/2025 4:12 PM EDT) Anatomical Region Laterality Modality Upper Extremities, Shoulder Left Radi ographic Imaging 05/04/2025 4:12 PM EDT Narrative 05/04/2025 4:13 PM EDT [address] [address] XRay Report Signed Patient: Ernesto Pop MR#: [id number] : 1985 Acct:[id number] Age/Sex: 39 / M ADM Date: 05/03/25 Loc: HO.XRAY Attending Dr: Jermain Nair MD Ordering Physician: Jermain Nair MD Date of Service: 05/03/25 Procedure(s): XR shoulder LT min 2V Accession Number(s): [id number] cc: Jermain Nair MD CLINICAL HISTORY: Pain and decreased ROM for the past month after heavy lifing 4 view left shoulder Comparison: None provided Findings: Bones intact. No dislocations. 1.4 cm calcification superior to the head of the humerus. No significant loss of joint space or osteophytes. No erosions. No radiopaque foreign body. IMPRESSION: Calcific tendinitis of the rotator cuff. This document has been electronically signed by: Stephania Morgan MD on 05/04/2025 16:12:22 Dictated By: Stephania Morgan MD Signed By: <Electronically signed by Stephania Morgan MD in OV> 05/04/251611 DD/ 11 TD/TT: 05/04/251611 Fast Brim Pouncer: Procedure Note Donotuseinterpreter, Image - 05/04/2025 [place] [address] XRay Report Signed Patient: Edgar Pop#: [id number] : 1985Acct:[id number] Age/Sex: 39 / MADM Date: 05/03/25 Loc: HO.XRAY Attending Dr: Jermain Nair MD Ordering Physician: Jermain Nair MD Date of Service: 05/03/25 Procedure(s): XR shoulder LT min 2V Accession Number(s): [id number] cc: Jermain Nair MD CLINICAL HISTORY: Pain and decreased ROM for the past month after heavylifing 4 view left shoulder Comparison: None provided Findings: Bones intact. No dislocations. 1.4 cm calcification superior to the head of the humerus. No significant loss of joint space or osteophytes. No erosions. No radiopaque foreign body. IMPRESSION: Calcific tendinitis of the rotator cuff. This document has been electronically signed by: Stephania Morgan MD on 05/04/2025 16:12:22 Dictated By: Stephania Morgan MD Signed By: <Electronically signed by Stephania Morgan MD in OV> 05/04/251611 DD/ 11 TD/TT: 05/04/251611 Fast Brim Pouncer: Jermain Nair MD IMG XR PROCEDURES Final Result * XR Lumbar Spine 2-3 Views (05/03/2025 10:59 PM EDT) Anatomical Region Laterality Modality Spine, L-spine Radiographic Sharmin ging 05/03/2025 10:5 9 PM EDT Narrative 05/03/2025 11:01 PM EDT [address] [address] XRay Report Signed Patient: Ernesto Pop MR#: [id number] : 1985 Acct:[id number] Age/Sex: 39 / M ADM Date: 05/03/25 Loc: JULIANA Attending Dr: Jermain Nair MD Ordering Physician: Jermain Nair MD Date of Service: 05/03/25 Procedure(s): XR lumbar spine 2-3V Accession Number(s): [id number] cc: Jermain Nair MD 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 No acute fractures or dislocation. No significant degenerative change. IMPRESSION: No acute findings. This document has been electronically signed by: Eleazar Alcala MD on 05/03/2025 22:59:47 Dictated By: Eleazar Alcala MD Signed By: <Electronically signed by Eleazar Alcala MD in OV> 05/03/251 DD/ 58 TD/TT: 05/03/252258 Fast Brim Pouncer: Procedure Note Donotuseinterpreter, Image - 05/03/[address] [address] XRay Report Signed Patient: Lemuel PopR#: [id number] : 1985Acct:[id number] Age/Sex: 39 / MADM Date: 05/03/25 Loc: JULIANA Attending Dr: Jermain Nair MD Ordering Physician: Jermain Nair MD Date of Service: 05/03/25 Procedure(s): XR lumbar spine 2-3V Accession Number(s): [id number] cc: Name,Jermain GALINDO 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 No acute fractures or dislocation. No significant degenerative change. IMPRESSION: No acute findings. This document has been electronically signed by: Eleazar Alcala MD on 05/03/2025 22:59:47 Dictated By: Eleazar Alcala MD Signed By: <Electronically signed by Eleazar Alcala MD in OV> 05/03/252300 DD/ 58 TD/TT: 05/03/252258 Fast Brim Pouncer: Jermain Nair MD IMG XR PROCEDURES Final Result * (ABNORMAL) CBC auto differential (05/03/2025 1:14 PM EDT) White Blood Count 6.7 4.8 - 10.8 X10*3/uL [facility] Red Blood Count 4.46(L) 4.60 - 5.80 X10*6/uL [facility] Hemoglobin 12.9(L) 14.0 - 18.0 g/dl [facility] Hematocrit 41.3(L) 42.0 - 52.0 % [facility] Mean Corpuscular Volume 92.6 80.0 - 98.0 fL [facility] Mean Corpuscular Hemoglobin 28.9 27.0 - 33.0 pg [facility] Mean Corpuscular HGB Conc 31.2 31.0 - 36.0 g/dl [facility] Red Cell Distribution Width 11.9 11.0 - 16.0 % [facility] Platelet Count 279 160 - 400 X10*3/uL [facility] Mean Platelet Volume 11.4 9.4 - 12.4 fL [facility] Neutrophils Percent Auto 60.1 45 - 73 % [facility] Imm Gran Pct Auto 0.4 0.0 - 0.4 % [facility] Lymphocytes Percent Auto 27.5 20 - 40 % [facility] Monocytes Percent Auto 9.6 2 - 11 % [facility] Eosinophils Percent Auto 1.8 0 - 4 % [facility] Basophils Percent Auto 0.6 0 - 2 % [facility] NRBC Pct Auto 0.0 0.0 - 0.2 /100WBC [facility] Neutrophils Absolute Auto 4.0 2.0 - 8.3 x10*3/uL [facility] Imm Gran Abs Auto 0.03 0.00 - 0.03 X10*3/uL [facility] Lymphocytes Absolute Auto 1.8 1.2 - 4.9 X10*3/uL [facility] Monocytes Absolute Auto 0.6 0.1 - 1.2 X10*3/uL [facility] Eosinophils Absolute Auto 0.1 0.0 - 0.4 X10*3/uL [facility] Basophils Absolute Auto 0.0 0.0 - 0.2 X10*3/uL [facility] NRBC Abs Auto 0.000 0.0 - 0.012 X10*3/uL [facility] Blood Venous blood specimen / Unknown 05/03/2025 1:14 PM EDT 05/03/2025 1:18 PM EDT us Jermain Name LAB BLOOD ORDERABLES Final Resul t [facility] [address] [place] [phone] * Hemoglobin A1c (05/03/2025 1:14 PM EDT) Hemoglobin A1c 4.9 <6.0 % [facility] Comment:Hemoglobin A1C Refer ence Range Adults: 4.8 - 6.0 % Non diabetic: < 6.0 % Goal: < 7.0 %Additional Action Suggested: > 8.0 %Note: Hemoglobin A1c results are invalid for patients with abnormal amounts of HbF. Blood transfusions may impact the HbA1c concentration in the patient sample. Estimated Average Glucose 94 mg/dL [facility] Comment:eAG = Estimated ave rage glucose which is %A1C expressed asaverage glucose, using the formula of the T5R-BhhzckvEgrhxjn Glucose study (ADAG), Diabetes Care, Vol.31,#8,Jun. 2007 Blood Venous blood specimen / Unknown 05/03/2025 1:14 PM EDT 05/03/2025 1:18 PM EDT us Jermain Name LAB BLOOD ORDERABLES Final Resul t [facility] [address] [place] [phone] * (ABNORMAL) Comprehensive Metabolic Panel (05/03/2025 1:14 PM EDT) Sodium 143 135 - 145 mmol/L [facility] Potassium 4.1 3.3 - 5.1 mmol/L [facility] Chloride 110(H) 96 - 108 mmol/L [facility] Carbon Dioxide 27 22 - 29 mmol/L [facility] Anion Gap 10(L) 12 - 20 [facility] Urea Nitrogen (BUN) 17(H) 9 - 16 mg/dL [facility] Creatinine, Serum 1.14 0.5 - 1.4 mg/dL [facility] Estimated Glomerular Filt Rate >60 [facility] Comment:Chronic Kidney Disea se: Estimated GFR < 60 mL/min/1.51o0Bclwev Kidney Disease: Estimated GFR < 15 mL/min/1.73m2 Glucose 79 60 - 115 mg/dL [facility] Calcium 9.3 8.4 - 10.2 mg/dL [facility] Bilirubin, Total 0.4 0.0 - 1.0 mg/dL [facility] Aspartate Amino Transferase 19 5 - 37 U/L [facility] Alanine Aminotransferase 25 0 - 40 U/L [facility] Total Protein 7.3 6.5 - 8.0 g/dL [facility] Albumin Level 4.7 3.5 - 5.0 g/dL [facility] Alkaline Phosphatase 70 39 - 117 U/L [facility] Blood Venous blood specimen / Unknown 05/03/2025 1:14 PM EDT 05/03/2025 1:18 PM EDT us Jermain Nair MD LAB BLOOD ORDERABLES Final Resul t [facility] [address] [place] [phone] [phone] * (ABNORMAL) Lipid Panel, Standard (04/28/2023 10:00 AM EDT) [facility] Cholesterol, Total 194 <200 mg/dL [facility] [place] [facility] HDL Cholesterol 44 > OR = 40 mg/dL [facility] [place] [facility] Triglycerides 94 <150 mg/dL [facility] [place] [facility] LDL Cholesterol 130(H) mg/dL (calc) [facility] Comment: Reference range: <100 Desirable range <100 mg/dL for primary prevention; <70 mg/dL for patients with CHD or diabetic patients with > or = 2 CHD risk factors. LDL-C is now calculated using the Jeancarlos-Barak calculation, which is a validated novel method providing better accuracy than the Friedewald equation in the estimation of LDL-C. Jeancarlos SS et al. LILIANA. 2013;310(19): 7425-6965 (http://education.[employer]/faq/FPV712) Chol/HDLC Ratio 4.4 <5.0 (calc) [facility] [place] [facility] Non-HDL Cholesterol 150(H) <130 mg/dL (calc) [facility] Comment: For patients with diabetes plus 1 major ASCVD risk factor, treating to a non-HDL-C goal of <100 mg/dL (LDL-C of <70 mg/dL) is considered a therapeutic option. Blood Venous blood specimen / Unknown 04/28/2023 10:00 AM EDT 04/28/2023 10:01 AM EDT Narrative [facility] - 04/29/2023 8:03 PM EDT FASTING:YES FASTING: YES us Jermain Nair MD LAB BLOOD ORDERABLES Final Resul t [facility] [address] [facility], [place] [address] [facility] [address] [place] [address] * HEPATITIS C AB W/REFL TO HCV RNA, QN, PCR (12/08/2021 11:25 AM EST) HEPATITIS C ANTIBODY NON-REACT STEVEN NON-REACT STEVEN [facility] INDEX 0.01 <1.00 [facility] Comment: HCV antibody was non-reactive. There is no laboratory evidence of HCV infection. In most cases, no further action is required. However, if recent HCV exposure is suspected, a test for HCV RNA (test code 91628) is suggested. For additional information please refer to http://[employer]/faq/VER18i2 (This link is being provided for informational/ educational purposes only.) 12/08/2021 11:2 5 AM EST us Jermain Name HISTORICAL/NON ORDERABLE LABS Fi nal Result [facility] [address] * HIV 1/2 ANTIGEN/ANTIBODY,FOURTH GENERATION W/RFL (12/08/2021 11:25 AM EST) HIV-1/2 ANTIGEN AND ANTIBODIES, 4TH GENERATION W/ REFLEX NON-REACT STEVEN NON-REACT STEVEN [facility] Comment: HIV-1 antigen and HIV-1/HIV-2 antibodies were not detected. There is no laboratory evidence of HIV infection. PLEASE NOTE: This information has been disclosed to you from records whose confidentiality may be protected by state law. If your state requires such protection, then the state law prohibits you from making any further disclosure of the information without the specific written consent of the person to whom it pertains, or as otherwise permitted by law. A general authorization for the release of medical or other information is NOT sufficient for this purpose. For additional information please refer to http://[employer]/faq/HYM696 (This link is being provided for informational/ educational purposes only.) The performance of this assay has not been clinically validated in patients less than 2 years old. 12/08/2021 11:2 5 AM EST Jermain Nair MD LAB BLOOD ORDERABLES Final Resul t [facility] [facility] Anywhere [address] from Last 3 Months or Most Recently Relevant to Health Maintenance Insurance Care Teams Bore Miner Operator Relationship Specialty Start Date End Date Name, MD Jermain [address] [place] [id number] PCP - General Family Medicine 12/08/18
--- OUTSIDE RECORDS SUMMARY | 2025-07-11 15:05 | XMS_ITS | Clinical Summary ---
Author Organization [facility] Address [address] [place] [address] Care Team Providers Care Wash Helper Name Role Phone April Le STEEL MANAGER Primary Care Provider [phone] Source Comments PLEASE NOTE, if this patient is a minor, it may be UNLAWFUL to discuss sensitive information that is contained in these records (such as FAMILY PLANNING, MENTAL HEALTH or SUBSTANCE ABUSE) with the minor patient's parent or other person without the patient's specific authorization.[facility] Allergies No known active allergies Active Problems Problem Noted Date Diagnosed Date Hx of colonoscopy 02/06/2017 Overview (02/06/2017): Done at [facility] - done 02/04/17 - repeat in 10 years Immunizations Immunization Administration Dates Next Due Flu, Preservative Free 12/21/2016 TDAP 12/21/2016 Family History Medical History Relation Name Comments Heart Problems Father Nervous System Disorders Mother Thy roid Relation Name Status Comments Father Mother Social History Tobacco Use Types Packs/Day Years Used Date Smoking Tobacco: Former Smokeless Tobacco: Never Comments:Reports tried smoki ng at a young age - Alcohol Use Standard Drinks/Week Comments No 0 (1 standard drink = 0.6 oz pur e alcohol) Social Connections Answer Date Recorded Social Connections and Isolation 0 07/02/2019 Financial Resource Strain Answer Date R ecorded Financial Resource Strain 0 2018 Stress Answer Date Recorded Stress 0 07/02/2019 Physical Activity Answer Date Recorded Physical Activity 0 07/02/2019 Food Insecurity Answer Date Recorded Food 0 07/02/2019 Transportation Needs Answer Date Record ed Transportation 0 07/02/2019 Housing Stability Answer Date Recorded Housing 0 07/02/2019 Safety and Environment Answer Date Isiah rded Safety 0 07/02/2019 Utilities Answer Date Recorded Utilities 0 07/02/2019 Employment Answer Date Recorded Employment 0 07/02/2019 Sex and Gender Information Value Date Recorded Sex Assigned at Not on file Legal Sex Male 10:07 AM PST Gender Identity Male Sexual Orientation Straight 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 Not on file Not on file Not on file Last Filed Vital Signs Vital Sign Reading Time Taken Comments Blood Pressure 122/74 12/21/2016 11:33 AM EST Pulse 80 12/21/2016 11:33 AM EST Temperature 35.9 C (96.7 F) 12/21/2016 11:33 AM EST Respiratory Rate 16 12/21/2016 11:33 AM EST Oxygen Saturation - - Inhaled Oxygen Concentration - - Weight 127.9 kg (282 lb) 12/21/2016 11:33 AM EST Height 176 cm (5' 9.29 ) 12/21/2016 11:33 AM EST Body Mass Index 41.3 12/21/2016 11:33 AM EST Plan of Treatment Not on file Insurance [employer] Member Subscriber Plan / Payer (Ef fective 2016-Present) Name:Ernesto Carroll Relation to Subscriber:Self Name:Glen Ernesto Payer ID:[id number] Group ID:Not on file Type:Indemnimanish Address: [facility] [address] [place] [address] Care Teams Wash Helper Relationship Specialty Start Date End Date April Le FNP [address] [place] [phone] PCP - General Family Medicine, STREET SUPERVISOR 10/14/16
--- OUTSIDE RECORDS SUMMARY | 2025-07-11 15:05 | XMS_ITS | Encounter Summary ---
Author Organization [email or web address] Address [address] [place] [address] Care Team Providers Care Rubber Tire Curer Name Role Phone Name, Jermain GALINDO Primary Care Provider [phone] Encounter Details Date Type Department Care Team ([facility] st Contact Info) Description 09/07/2024 Telephone [facility] [address] [place], [place] [phone] Name, MD Jermain [address] [place], [place] [phone] Social History Tobacco Use Types Packs/Day Years [...] housing situation today? I have cory chavez 09/13/[address] you li ve. Do you have problems with any of the following? None of the above 09/13/2023 Food Insecurity Answer Date Recorded Within the past 12 months, y ou worried that your food would run out before you got money to buy more: Never True 09/13/2023 Within the past 12 months,th e food you bought just didn't last and you didn't have enough money to get more: Never True 04/2023 Transportation Answer Date Recorded In the past 12 months, has l ack of transportation kept you from medical appts, meetings, work or from getting things needed for daily living? No 09/13/2023 Utilities Answer Date Recorded In the past 12 months, has t he electric, gas, oil or water company threatened to shut off services in your home? No 09/13/2023 Depression Answer Date Recorded Patient Health Questionnaire-2 Score 1 08/22/2024 Sex and Gender Information Value Date Recorded Sex Assigned at Male 09/07/2022 10:35 AM EDT Legal Sex Male 10:35 AM EDT Gender Identity Male 09/07/2022 10:35 AM EDT Sexual Orientation Straight 09/07/2022 10 :35 AM EDT documented as of this encounter Plan of Treatment Upcoming Encounters Date Type Department Care Team (Late st Contact Info) Description 07/23/2025 9:00 AM EDT Nutrition [facility]TR[facility] [address] [place] [id number] [place] [address] 08/02/2025 9:45 AM EDT Procedure Visit [facility] [address] [place] [address] Keara Zhang MD [address] [place] [address] 08/27/2025 3:30 PM EDT Office Visit [facility] [address] [place] [address] NameJermain MD [address] [place] [address] documented as of this encounter Visit Diagnoses Not on filedocumented in this encounter Additional Health Concerns Assessment Noted Time PHQ-9 Depression Total Score: 4 08/22/20 24 9:12 AM EDT documented as of this encounter Care Teams Rubber Tire Curer Relationship Specialty Start Date End Date Jermain Nair MD [address] [place] [address] PCP - General Family Medicine 12/08/18 documented as of this encounter
--- OUTSIDE RECORDS SUMMARY | 2025-07-11 15:05 | XMS_ITS | Clinical Summary ---
Author Organization [employer] [facility] Address [address] [place] [address] Care Team Providers Care Business Development Name Role Phone Marilee Paredes MD Primary Care Provider [phone] Surgical History Surgery Date Site/Laterality Comments OTHER SURGICAL HISTORY PROCEDURE: PA LIGAMENTOUS RECONSTRUCTION KNEE EXTRA-ARTICULAR; COMMENT: right knee CHOLECYSTECTOMY PROCEDURE: PA LAPAROSCOPY SURG CHOLECYSTECTOMY Medical History Medical History Date Comments Morbid obesity (CMS/HCC V24, CMS/HCC V28) DX:Morbid obesity (HCC) History of cholecystectomy DX:Hi story of cholecystectomy Family history of prostate cancer DX:Family history of prostate cancer Family History Relation Name Status Comments Father Alive Mother Alive Social History Tobacco Use Types Packs/Day Years Used Date Smoking Tobacco: Never Smokeless Tobacco: Never Alcohol Use Standard Drinks/Week Comments No 0 (1 standard drink = 0.6 oz pur e alcohol) Sex and Gender Information Value Date Recorded Sex Assigned at Not on file Legal Sex Male 6:51 PM EST Gender Identity Not on file Sexual Orientation Not on file Obstetrics History Plan of Treatment Health Maintenance Due Date Last Done Comments DTaP,Tdap,and Td Vaccines (1 - Tdap) 2003 Hepatitis B Vaccines (1 of 3 - 19+ 3-dose series) 2003 COVID-19 Vaccine (2023-2 5 season) 2024 Depression Screening 11/08/2024 Influenza Vaccine (#1) 2025 HIB Vaccines Aged Out No longer eligi ble based on patient's age to complete this topic HPV Vaccines Aged Out No longer eligi ble based on patient's age to complete this topic Hepatitis A Vaccines Aged Out No long er eligible based on patient's age to complete this topic IPV Vaccines Aged Out No longer eligi ble based on patient's age to complete this topic MMR Vaccines Aged Out No longer eligi ble based on patient's age to complete this topic Meningococcal ACWY Vaccine Aged Out N o longer eligible based on patient's age to complete this topic Meningococcal B Vaccine Aged Out No l onger eligible based on patient's age to complete this topic Pneumococcal Vaccine: Pediat rics (0 to 5 Years) and At-Risk Patients (6 to 49 Years) Aged Out No longer eligible b ased on patient's age to complete this topic RSV Immunization Patients Un goyo 20 months Aged Out No longer eligible b ased on patient's age to complete this topic Varicella Vaccines Aged Out No longer eligible based on patient's age to complete this topic Advance Directives Documents on File Type Date Recorded Patient Internal Carver Expl anation Health Care Decision (hx) 02/07/2015 AD HUGHES DIRECTIVE Health Care Decision (hx) 02/07/2015 AD HUGHES DIRECTIVE Health Care Decision (hx) 02/07/2015 AD HUGHES DIRECTIVE Health Care Decision (hx) 01/07/2015 AD HUGHES DIRECTIVE Health Care Decision (hx) 01/07/2015 AD HUGHES DIRECTIVE Health Care Decision (hx) 01/07/2015 AD HUGHES DIRECTIVE Care Teams Business Development Relationship Specialty Start Date End Date Marilee Paredes MD [address] [place] [address] PCP - General Internal Medicine 06/13/15
--- OUTSIDE RECORDS SUMMARY | 2025-07-11 15:05 | XMS_ITS | Clinical Summary ---
Demographics Address [address] [place] [address] Home Phone Mobile Phone Email Address Preferred Language Thai; Castilian Marital Status Restorationism Affiliation Unknown Race Unknown Ethnic Group or Author Organization [facility] Address [address] [place] [address] Support Name Relationship Address Phone Cydney Newby Emergency Contact [address] [place] [address] No Contact Emergency Contact Unknown [phone] Care Team Providers Care Online Retailer Name Role Phone Marilee Paredes MD Primary Care Provider [phone] Allergies No known active allergies Medications Medication Sig Dispensed Refills Start Date End Date Status acetaminophen (TYLENOL EXTRA STRENGTH) 500 MG tablet Take 1-2 tabs every 6 hours as needed. 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 Social History Tobacco Use Types Packs/Day Years Used Date Smoking Tobacco: Never Smokeless Tobacco: Never Alcohol Use Standard Drinks/Week Comments No 0 (1 standard drink = 0.6 oz pur e alcohol) 1x/month Sex and Gender Information Value Date Recorded Sex Assigned at Not on file Gender Identity Not on file Sexual Orientation Not on file Last Filed Vital Signs Vital Sign Reading Time Taken Comments Blood Pressure 131/86 12/24/2015 11:43 AM EST Pulse 88 12/24/2015 11:43 AM EST Temperature 36.3 C (97.3 F) 06/13/2015 1:58 PM EDT Respiratory Rate 18 12/26/2014 4:28 PM EST Oxygen Saturation 100% 12/26/2014 4:28 PM EST Inhaled Oxygen Concentration - - Weight 121.2 kg (267 lb 3.2 oz) 06/13/2015 1:58 PM EDT Height 180.3 cm (5' 11 ) 06/13/2015 1:58 PM EDT Body Mass Index 37.27 06/13/2015 1:58 PM EDT Plan of Treatment Health Maintenance Due Date Last Done Comments Hepatitis B Vaccines (1 of 3 - 3-dose series) 1984 Hepatitis C Screening 1984 COVID-19 Vaccine (#1) 1984 Depression Screening 1996 Preventative Health Evaluation 2002 DTap / Tdap / Td (1 - Tdap) 2003 Influenza Vaccine (#1) 2025 Pneumococcal Vaccine Aged Out No long er eligible based on patient's age to complete this topic RSV Ped < 20 months Aged Out No longe r eligible based on patient's age to complete this topic Medical Devices Implanted Type Area Photocopying Equipment Repairer Device Identifier Shelf Expiration Date Model / Serial / Lot Cement Simplex P Radiopaque Full Dose Bone - [id number] - [id number] Implanted:Qty: 1 on 12/26/2014 by French Bonilla MD at [facility] and [facility] Right: Knee [employer] 12/26/2016 [id number] / / [id number] Ultrafill Dbm Human Implanted:Qty: 1 on 12/26/2014 by French Bonilla MD at [facility] and [facility] Right: Knee 08/08/2018 Description:Tissue ID: [id number] Description: Ultrafill DBM Human Size:10cc Product Code: [id number] Expiration: 08/08/2018 Guarantor Name Account Type Relation to Patient Date of Phone Billing Address Ernesto Carroll Personal/Family Self [address] [place] [phone] Ernesto Carroll Personal/Family Self 1985 [address] [place] [address] Care Teams Online Retailer Relationship Specialty Start Date End Date Marilee Paredes MD [address] [place] [phone] PCP - General Internal Medicine 06/13/15
== END 2025-07-11 13:28 | disposition home or self-care (01) ==
LOC: HO.HUSH 12:42
PROVIDERS: PCP Internal Medicine Geriatric Medicine; Visit Provider Urology
DX: R45.89 Other symptoms and signs involving emotional state (principal)
CPT/HCPCS: 99204